=== PATIENT | female | born 1995 | race Caucasian/White ===

== ENCOUNTER 2020-11-14 09:41 | Emergency (ER) | payer OTHER, SELFPAY ==
[2020-11-14 10:49] VITALS: BP 109/69; PULSE 58; RESP 16; TEMP 36.5; O2SAT 98; BMI 28.1
--- NOTE | 2020-11-14 11:15 | ED_ITS ---
HPI - Abdominal Pain General Chief Complaint: Abdominal Pain Stated Complaint: abd pain Time Seen by Provider: 11/14/20 11:15 Source: patient Mode of arrival: ambulatory History of Present Illness HPI narrative: 25 year old obese female coming from home with epigstric pain that began at 3:00 am today. She states she think it is gastritis. She states that the pain is intermittent and boring in nature without radiation. She also mentions she vomited X1 stomach acid while in the waiting room. She states that she is a little nauseous and has little appetite. She has no prior medical history or abdominal surgeries. Denies drug use and alcohol use.She states she does not think she is , but is not on birthcontrol. She states she went to [facility] last week with the same complaint where she was told she has gastritis. She was prescribed two medications, which she is unaware of the name that have not helped. 2 years ago she mentions she had a similar episode and she had a CT scan. She has no chest pain, shorness of breath, changes in bowel habits, recent sick contacts or headache. LMP 10/14/2020 MD elicited complaint: abdominal pain Pertinent past history: gastritis Onset (ago): hour(s) (8 hours ago ) Pain Consistency: intermittent Location: epigastric Severity: mild Quality: other ( boring ) Radiation: none and epigastric Migration to: no migration Exacerbating factors: nothing Relieving factors: nothing Associated symptoms: nausea and vomiting (X1 bilious ) Related Data Date of Last Menstrual Period: 10/14/20 Patient : No Previous Rx's Medication Instructions Recorded omeprazole 40 mg capsule,delayed 40 mg PO DAILY #30 cap 11/14/20 release ondansetron 4 mg disintegrating 4 mg PO Q6-8H PRN #7 tab 11/14/20 tablet sucralfate 1 gram tablet 1 g PO TID #90 tab 11/14/20 Allergies Allergy/AdvReac Type Severity Reaction Status Date / Time No Known Allergies Allergy Unverified 11/18/19 17:08 [No Known Allergies*] Review of Systems Constitutional: Reports as per HPI, Reports anorexia, Reports malaise and Reports poor appetite Eyes: Reports no additional eye complaints Reports system reviewed and no additional complaints, except as documented Cardiovascular: Reports no additional cardiovascular complaints Respiratory: Reports no additional respiratory complaints Gastrointestinal: Reports abdominal pain (epigastric pain intermittent and boaring ) Genitourinary: Reports no additional female genitourinary complaints Musculoskeletal: Reports no additional musculoskeletal complaints Physical Exam Vital Signs: Vital Signs: Last Vital Signs Temp 98.9 F 11/14/20 12:11 Pulse 49 L 11/14/20 12:11 Resp 14 11/14/20 12:11 BP 104/61 11/14/20 12:11 Pulse Ox 98 11/14/20 12:11 Body Mass Index 28.1 Const: General: cooperative, alert and awake Nutritional Appearance: obese Orientation/consciousness: oriented to place and patient oriented x3 Limitations: no limitations Chest: Chest palpation & inspection: normal inspection of the chest and normal palpation of entire chest wall Resp: Effort & Inspection: normal respiratory effort and able to speak in complete sentences Cardio: Rate: regular rate Rhythm: regular rhythm Heart sounds: S1 normal heart sound present and S2 normal heart sound present Peripheral pulses: Peripheral pulses 2+ throughout GI: Inspection: Yes normal to inspection Palpation (GI): Soft to palpation (non-tender non distended ) Auscultation: normal bowel sounds Skin: General skin exam: no rashes or lesions noted Neuro: General: oriented to place and patient oriented x3 Extrem: General: Yes normal to inspection and Yes full ROM MDM - Abdominal Pain MDM Narrative Medical decision making narrative: Patient nonspecific upper abdominal pain with normal labs likely gastritis discharge patient home on sucralfate Prilosec advised to follow-up with PCP Lab Data Attestation: I reviewed the patient's lab results. Result diagrams: 11/14/20 12:09 11/14/20 12:09 Labs: Lab Results 11/14/20 11/14/20 11/14/20 Range/Units 11:59 12:09 12:09 WBC 7.1 (4.8-10.8) X10*3/uL RBC 4.33 (4.20-5.50) X10*6/uL Hgb 13.9 (12.0-16.0) g/dl Hct 40.7 (37-47) % MCV 94.0 (80-98) fL MCH 32.1 (27.0-33.0) pg MCHC 34.2 (31.0-35.0) g/dl RDW 12.6 (11.0-16.0) % Plt Count 160 (160-400) X10*3/uL MPV 11.4 (9.4-12.3) fL Immature Gran % (Auto) 0.3 (0.0-0.4) % Neut % (Auto) 71.1 (45-73) % Lymph % (Auto) 19.8 L (20-40) % [place] % (Auto) 7.4 (2-11) % Eos % (Auto) 1.1 (0-4) % Baso % (Auto) 0.3 (0-2) % Lymph # (Auto) 1.4 (1.2-4.9) X10*3/uL [place] # (Auto) 0.5 (0.1-1.2) X10*3/uL Eos # (Auto) 0.1 (0.0-0.4) X10*3/uL Baso # (Auto) 0.0 (0.0-0.2) X10*3/uL Abs Immat Gran (auto) 0.02 (0.00-0.03) X10*3/uL Absolute Neuts (auto) 5.1 (2.0-8.3) X10*3/uL Absolute Nucleated RBC 0.000 (0.0-0.012) X10*3/uL Nucleated RBC % (auto) 0.0 (0.0-0.2) /100WBC Sodium 137 (135-145) mmol/L Potassium 4.3 (3.3-5.1) mmol/L Chloride 106 (96-108) mmol/L Carbon Dioxide 25 (22-29) mmol/L Anion Gap 10 L (12-20) BUN 8 L (9-16) mg/dL Creatinine 0.68 (0.5-1.4) mg/dL Estim Creat Clear Calc 106.6 Estimated GFR > 60 Random Glucose 95 (60-115) mg/dL Calcium 9.7 (8.4-10.2) mg/dL Total Bilirubin 0.8 (0.0-1.0) mg/dL AST 14 (5-31) U/L ALT 11 (0-31) U/L Alkaline Phosphatase 71 (39-117) U/L Total Protein 7.6 (6.5-8.0) g/dL Albumin 4.2 (3.5-5.0) g/dL Urine Test NEGATIVE (NEGATIVE) Discharge Plan Discharge Clinical Impression: Gastritis Qualifiers: Gastritis type: unspecified gastritis Chronicity: acute Gastritis bleeding: without bleeding Qualified Code(s): K29.00 - Acute gastritis without bleeding Patient Disposition: Home, Self-Care Instructions: Gastritis (ED) Additional Instructions: Avoid fried/spicy food Take medication as prescribed 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 Prescriptions: New omeprazole 40 mg capsule,delayed release(DR/EC) 40 mg PO DAILY Qty: 30 RF: 0 sucralfate 1 gram tablet 1 g PO TID Qty: 90 RF: 0 ondansetron 4 mg tablet,disintegrating 4 mg PO Q6-8H PRN (Reason: nausea and vomiting) Qty: 7 RF: 0 PMFSH Past Medical History Date of Last Menstrual Period: 10/14/20 Social History Social History Alcohol intake: current Alcohol intake frequency: holidays/special occasions only Patient Tobacco Use Status: Never used Tobacco Use of substances other than those prescribed or required for medical reasons: No Advance Directives: No Advance Directives Information Provided: No Patient : No
[2020-11-14] MEDS: Ondansetron ODT 4 MG TAB.RAPDIS TRANSLINGU (12:00)
[2020-11-14] MEDS: 0.9 % Sodium Chloride 1,000 ML 999 ML IVCONT (12:01)
[2020-11-14 12:11] VITALS: BP 104/61; PULSE 49; RESP 14; TEMP 37.2; O2SAT 98
[2020-11-14 12:14] LABS: UPreg QC Valid YES; Urine Pregnancy NEGATIVE (NEGATIVE)
[2020-11-14 12:17] LABS: MANUAL DIFF FLAG NO
[2020-11-14 12:18] LABS: Basophils Percent Auto 0.3 % (0-2); Eosinophils Absolute Auto 0.1 X10*3/uL (0.0-0.4); Eosinophils Percent Auto 1.1 % (0-4); Hematocrit 40.7 % (37-47); Hemoglobin 13.9 g/dl (12.0-16.0); Imm Gran Abs Auto 0.02 X10*3/uL (0.00-0.03); Imm Gran Pct Auto 0.3 % (0.0-0.4); Lymphocytes Absolute Auto 1.4 X10*3/uL (1.2-4.9); Lymphocytes Percent Auto 19.8 % (20-40); Mean Corpuscular HGB Conc 34.2 g/dl (31.0-35.0); Mean Corpuscular Hemoglobin 32.1 pg (27.0-33.0); Mean Platelet Volume 11.4 fL (9.4-12.3); Monocytes Absolute Auto 0.5 X10*3/uL (0.1-1.2); Monocytes Percent Auto 7.4 % (2-11); Neutrophils Absolute Auto 5.1 X10*3/uL (2.0-8.3); Neutrophils Percent Auto 71.1 % (45-73); Platelet Count 160 X10*3/uL (160-400); Red Blood Count 4.33 X10*6/uL (4.20-5.50); Red Cell Distribution Width 12.6 % (11.0-16.0); White Blood Count 7.1 X10*3/uL (4.8-10.8)
[2020-11-14 12:36] LABS: Alanine Aminotransferase 11 U/L (0-31); Albumin Level 4.2 g/dL (3.5-5.0); Alkaline Phosphatase 71 U/L (39-117); Anion Gap 10 (12-20); Aspartate Amino Transferase 14 U/L (5-31); Bilirubin Total 0.8 mg/dL (0.0-1.0); Blood Urea Nitrogen 8 mg/dL (9-16); Calcium 9.7 mg/dL (8.4-10.2); Carbon Dioxide 25 mmol/L (22-29); Chloride 106 mmol/L (96-108); Creatinine Clr Calc Pharmacy 106.6; Estimated Glomerular Filt Rate > 60; Glucose Random 95 mg/dL (60-115); Potassium 4.3 mmol/L (3.3-5.1); Sodium 137 mmol/L (135-145); Total Protein 7.6 g/dL (6.5-8.0)
[2020-11-14 12:54] LABS: Appearance Urine CLEAR; Color Urine STRAW; Glucose Urine UA NEG (NEG); Leukocyte Esterase Urine TRACE (NEG); Nitrite Urine NEG (NEG); UACC Culture Trigger YES; Urine Blood NEG (NEG); Urine Ketones NEG (NEG); Urine Protein NEG (NEG-TRACE)
[2020-11-14 13:09] LABS: WBC Urine 0-2 /HPF (0-4)
[2020-11-14 13:10] LABS: RBC Urine 0 /HPF (0); Squamous Epithelial Cell Urine TRACE /LPF
== END 2020-11-14 12:59 | disposition home or self-care (01) ==
PROVIDERS: Emergency Provider Internal Medicine
DX: K29.00 Acute gastritis without bleeding (principal); R10.13 Epigastric pain; Z79.899 Other long term (current) drug therapy
CPT/HCPCS: 36415; 80053; 81001; 81025; 85025; 87086; 96360; 99284